=== PATIENT | female | born 1935 | race Caucasian/White ===

== ENCOUNTER 2017-01-26 11:55 | Emergency (ER) | payer OTHER ==
[2017-01-26 12:07] VITALS: BP 125/71; PULSE 65; TEMP 97.4; BMI 30.7
--- NOTE | 2017-01-26 12:45 | PDOC ---
History of Present Illness - General Chief Complaint: Injury Stated Complaint: POSSIBLE FALL Time Seen by Provider: 01/26/17 12:03 History Source: Care Provider, Family Exam Limitations: Dementia - History of Present Illness Initial Comments: 01/26/17 12:46 81 year old female c/ hx of HTN, HLD, GERD, dementia brought in by family for wandering. The patient lives in an assisted living facility where she is looked after from 9 am to 5 pm, but if often alone during the night. Tonight, they noted that the patient was found wandering out in the streets and was brought back to her home. Family was contacted and pt was brought to the ED. According to the family, the patient is acting like herself. They were concerned about her being alone as this was the first time she wanders. The patient cannot given an account to as what she did, but otherwise has no complaints other than chronic bilateral knee pains 2/2 arthritis. The son thinks her right knee may be hurting more than usual, so is unclear if she fell or not. He wanted to double check and make sure. Otherwise, patient is ambulatory with a walker, and walks like her usual baseline. Past History - Past Medical History Allergies/Adverse Reactions: Allergies Allergy/AdvReac Type Severity Reaction Status Date / Time No Known Allergies Allergy Verified 01/26/17 11:58 Home Medications: Ambulatory Orders Carvedilol [Coreg -] 12.5 mg PO BID 01/26/17 Donepezil HCl [Aricept -] 5 mg PO HS 01/26/17 Losartan Potassium [Cozaar] 25 mg PO DAILY 01/26/17 Memantine HCl [Namenda -] 5 mg PO DAILY 01/26/17 Multivitamin with Iron [Daily Cristian with Iron] 1 each PO DAILY 01/26/17 Omeprazole 20 mg PO DAILY 01/26/17 Simvastatin [Zocor -] 40 mg PO HS 01/26/17 COPD: No Dementia: Yes HTN: Yes Hypercholesterolemia: Yes - Suicide/Smoking/Psychosocial Hx Smoking History: Never smoked Hx Alcohol Use: No Drug/Substance Use Hx: No Substance Use Type: None Review of Systems - Review of Systems Able to Perform ROS?: Yes Comments:: 01/26/17 12:48 GENERAL/CONSTITUTIONAL: No fever, weakness. HEAD, EYES, EARS, NOSE AND THROAT: No change in vision. No ear pain or discharge. No sore throat. CARDIOVASCULAR: No chest pain or shortness of breath. RESPIRATORY: No cough, wheezing, or hemoptysis. GASTROINTESTINAL: No abdominal pain, nausea, vomiting, diarrhea, or decreased PO intolerance. GENITOURINARY: No dysuria, frequency, or change in urination. MUSCULOSKELETAL: + bilateral knee pains. No neck or back pain. SKIN: No rash NEUROLOGIC: No headache, vertigo, loss of consciousness, or change in strength/ sensation. ENDOCRINE: No increased thirst. No abnormal weight change. HEMATOLOGIC/LYMPHATIC: No anemia, easy bleeding, or history of blood clots. ALLERGIC/IMMUNOLOGIC: No hives or skin allergy. *Physical Exam - Vital Signs Last Vital Signs Temp Pulse Resp BP Pulse Ox 97.4 F L 65 16 125/71 97 01/26/17 11:58 01/26/17 11:58 01/26/17 11:58 01/26/17 11:58 01/26/17 11:58 - Physical Exam Comments: 01/26/17 12:48 GENERAL: Awake, alert, in no acute distress. HEAD: No signs of trauma EYES: PERRLA, EOMI, sclera anicteric, conjunctiva clear ENT: Auricles normal inspection, NECK: Normal ROM, supple LUNGS: Breath sounds equal, clear to auscultation bilaterally. No wheezes, and no crackles HEART: Regular rate and rhythm, normal S1 and S2, no murmurs, rubs or gallops ABDOMEN: Soft, nontender, normoactive bowel sounds. No guarding, no rebound. No masses EXTREMITIES: Normal range of motion, no edema. No clubbing or cyanosis. No cords, erythema, or tenderness. Bilateral knee tenderness to palpation but FROM and ambulatory. NEUROLOGICAL: Cranial nerves II through XII grossly intact. Normal speech SKIN: Warm, Dry, normal turgor, no rashes or lesions noted. ED Treatment Course - RADIOLOGY Radiology Studies Ordered: Category Date Time Status KNEE 2 POS-RIGHT [RAD] Stat Radiology 01/26/17 12:13 Ordered Medical Decision Making - Medical Decision Making 01/26/17 12:49 Vital Signs Temp Pulse Resp BP Pulse Ox 97.4 F L 65 16 125/71 97 01/26/17 11:58 01/26/17 11:58 01/26/17 11:58 01/26/17 11:58 01/26/17 11:58 I suspect that the patient likely did not fall, but given family concern for potentially worsened right knee pain, will obtain a right knee xray. The patient would likely benefit from a social research assistant. Case discussed with social research assistant who had spoken to the son. From their conversation, it appears that the patient has a caseworker intake already and the son was encouraged to talk the caseworker intake about increasing the hours of coverage for her. If the knee xray is negative, the patient can be discharged with the family. 01/26/17 13:13 Xray reviewed, pending official radiology read. demonstrates arthritis and no fracture. Results discussed with son. Pt will receive another evaluation for increasing hours for home health aide. Supportive care. I discussed the physical exam findings, ancillary test results and final diagnoses with the patient. I answered all of the patient's questions. The patient was satisfied with the care received and felt comfortable with the discharge plan and treatment plan. The patient will call their primary care physician within 24 hours to arrange follow-up and will return to the Emergency Department with any new, persistant or worsening symptoms. *DC/Admit/Observation/Transfer Diagnosis at time of Disposition: Dementia Qualifiers: Dementia type: unspecified type Dementia behavioral disturbance: without behavioral disturbance Qualified Code(s): F03.90 - Unspecified dementia without behavioral disturbance - Discharge Dispostion Disposition: HOME Condition at time of disposition: Good Admit: No - Referrals - Patient Instructions Printed Discharge Instructions: DI for Alzheimer's Disease Additional Instructions: Ms. Mar would benefit greatly for increased services for her safety. Please discuss this the caseworker intake. - Post Discharge Activity
== END 2017-01-26 13:19 | disposition home or self-care (01) ==
LOC: FER 11:55
DX: F03.90 Unspecified dementia, unspecified severity, without behavioral disturbance, psychotic disturbance, mood disturbance, and anxiety (principal); I10 Essential (primary) hypertension; E78.5 Hyperlipidemia, unspecified; K21.9 Gastro-esophageal reflux disease without esophagitis
CPT/HCPCS: 73560-TC-RT; 99282-25